=== PATIENT | female | born 1990 | race Caucasian/White ===

== ENCOUNTER 2018-07-12 21:37 | Emergency (ER) | payer MEDICAID ==
[~2018-07-12] VITALS: Ht 170.2 cm; Wt 101.2 kg
[~2018-07-12 21:37] MED LIST: ACET325T33 PO; ALBU8.5H5 INH; ALBU8.5H8 INH; GUAI118L94 PO; IBUP-1542 PO; PRED20TA PO; SODI44SP11 NS
[2018-07-12 21:40] VITALS: RESP 18; Ht 170.2 cm; Wt 101.2 kg
--- NOTE | 2018-07-12 22:56 | ERD ---
ER Documentation Chief Complaint Chief Complaint ap, nausea x's 1 week HPI 27-year-old female, with a history of cholelithiasis, presents to the emergency department, complaining of 1 week with diffuse abdominal pain located in the e pigastric area and radiated to the back, dull, intermittent, 6/10, associated with nausea and general malaise. The patient denies fever, no chills, no diarrhea or constipation, no jaundice. Medications taken at this time for pain. ROS All systems reviewed and are negative except as per history of present illness. Medications Home Meds Active Scripts Ibuprofen* (Motrin*) 400 Mg Tab, 400 MG PO Q6H PRN for PAIN AND OR ELEVATED TEMP, #30 TAB Prov:DAVID WANG MD 07/13/18 Ranitidine Hcl* (Zantac*) 150 Mg Tablet, 150 MG PO BID PRN for EPIGASTRIC PAIN, #30 TAB Prov:DAVID WANG MD 07/13/18 Guaifenesin-Codeine Phosphate* (Guaifenesin* with Codeine Liq) 120 Ml Liquid, 5 ML PO Q4H for COUGH, #120 ML Prov:FATUMA VERA NP 03/05/15 Sodium Chloride (Saline Nasal [place]) 45 Ml [place], 2 SPRAY NS Q2H, #1 BOT Prov:FATUMA VERA NP 03/05/15 Albuterol Sulfate* (Albuterol Sulfate* HFA) 8.5 Gm Hfa.aer.ad, 2 PUFF INH Q4 PRN for SHORTNESS OF BREATH, #1 EA Prov:FATUMA VERA NP 03/05/15 Albuterol Sulfate* (Proair HFA*) 8.5 Gm Hfa.aer.ad, 2 PUFF INH Q4 for 7 Days, INH Prov:PIA COLE MD 02/09/15 Prednisone* (Prednisone*) 20 Mg Tab, 60 MG PO DAILY for 5 Days 60MG PO Q DAY X 3 DAYS, THEN 40 MG PO Q DAY X 2 DAYS Prov:PIA COLE MD 02/09/15 Acetaminophen* (Tylenol*) 325 Mg Tablet, 2 TAB PO Q8 PRN for PAIN AND OR ELEVATED TEMP, #20 TAB Prov:ANGELY BLEVINS MD 01/03/15 Ibuprofen* (Motrin*) 600 Mg Tab, 600 MG PO Q6H PRN for PAIN AND OR ELEVATED TEMP, #30 Prov:ANGELY BLEVINS MD 01/03/15 Allergies Allergies: Coded Allergies: No Known Allergy (Verified , 01/03/15) PMhx/Soc Medical and Surgical Hx: pt denies Medical Hx, pt denies Surgical Hx History of Surgery: Yes (C/SECTION X1) Anesthesia Reaction: No Hx Neurological Disorder: No Hx Respiratory Disorders: Yes (asthma) Hx Cardiac Disorders: No Hx Psychiatric Problems: No Hx Miscellaneous Medical Probl: Yes (ASTHMA ) Hx Alcohol Use: No Hx Substance Use: No Hx Tobacco Use: No Smoking Status: Never smoker Physical Exam Vitals Vital Signs Date Temp Pulse Resp B/P (MAP) Pulse Ox O2 O2 Flow FiO2 Time Delivery Rate 07/13/18 84 138/77 01:01 (97) 07/12/18 98.3 92 18 163/84 100 21:40 (110) Physical Exam Patient alert, oriented, vital signs stable. HEAD: Normocephalic, atraumatic. EYES: PERRLA, EOMI, Sclera and conjunctiva appear normal. NOSE: Clear and patent nostrils. EARS: Canals clear, tympanic membranes WNL. MOUTH: normal lips and tongue, no oral lesions. THROAT: Normal oropharynx, no tonsillar exudates. NECK: Supple, No lymphadenopathy. Full ROM without pain or tenderness. HEART: RRR, no rubs, murmurs, clicks or gallops. LUNGS: Clear to auscultation. ABDOMEN: Soft, tender to palpation in the epigastric area, no Gomes sign, without masses or hepatosplenomegaly. EXTREMITIES: No edema bilaterally. BACK: Full ROM, no deformity, normal back exam NEURO: Cranial nerves grossly intact, no motor or sensory deficit SKIN: No rashes, no petechia. Result Diagram: 07/12/182 07/12/182326 Results 24 hrs Laboratory Tests Test 07/12/18 23:27 White Blood Count 8.1 10^3/ul Red Blood Count 4.43 10^6/ul Hemoglobin 11.1 g/dl Hematocrit 35.6 % Mean Corpuscular Volume 80.4 fl Mean Corpuscular Hemoglobin 25.1 pg Mean Corpuscular Hemoglobin Concent 31.2 g/dl Red Cell Distribution Width 13.4 % Platelet Count 340 10^3/UL Mean Platelet Volume 9.8 fl Immature Granulocytes % 0.400 % Neutrophils % 51.8 % Lymphocytes % 36.7 % Monocytes % 8.6 % Eosinophils % 2.1 % Basophils % 0.4 % Nucleated Red Blood Cells % 0.0 /100WBC Immature Granulocytes # 0.030 10^3/ul Neutrophils # 4.2 10^3/ul Lymphocytes # 3.0 10^3/ul Monocytes # 0.7 10^3/ul Eosinophils # 0.2 10^3/ul Basophils # 0.0 10^3/ul Nucleated Red Blood Cells # 0.0 10^3/ul Urine Color YELLOW Urine Clarity SLIGHTLY CLOUDY Urine pH 7.0 Urine Specific [place] 1.025 Urine Ketones NEGATIVE mg/dL Urine Nitrite NEGATIVE mg/dL Urine Bilirubin NEGATIVE mg/dL Urine Urobilinogen NEGATIVE mg/dL Urine Leukocyte Esterase 1+ [place]/ul Urine Microscopic RBC 8 /HPF Urine Microscopic WBC 3 /HPF Urine Squamous Epithelial Cells FEW /HPF Urine Bacteria FEW /HPF Urine Mucus FEW /HPF Urine Hemoglobin 1+ mg/dL Urine Glucose NEGATIVE mg/dL Urine Total Protein NEGATIVE mg/dl Urine Test NEGATIVE Sodium Level 141 mmol/L Potassium Level 3.8 mmol/L Chloride Level 103 mmol/L Carbon Dioxide Level 29 mmol/L Anion Gap 9 Blood Urea Nitrogen 12 mg/dl Creatinine 0.78 mg/dl Est Glomerular Filtrat Rate mL/min > 60 mL/min Glucose Level 110 mg/dl Calcium Level 9.6 mg/dl Total Bilirubin 0.1 mg/dl Direct Bilirubin 0.00 mg/dl Indirect Bilirubin 0.1 mg/dl Aspartate Amino Transf (AST/SGOT) 31 IU/L Alanine Aminotransferase (ALT/SGPT) 29 IU/L Alkaline Phosphatase 77 IU/L Total Protein 8.0 g/dl Albumin 4.4 g/dl Globulin 3.60 g/dl Albumin/Globulin Ratio 1.22 Lipase 124 U/L Current Medications Medications Dose Sig/Anna Start Time Status Last (Trade) Ordered Route PRN Stop Time Admin Dose Reason Admin Famotidine 20 mg ONCE STAT 07/12/18 DC 07/12/18 (Pepcid) PO 23:16 23:26 07/12/18 23:21 650 mg ONCE ONCE 07/12/18 DC 07/12/18 Acetaminophen PO 23:30 23:26 (Tylenol 07/12/18 23:31 Tab) Patient: MARIA DEL CARMEN BOND : 1990 Age: 27 Sex: F [id number] DOS: 07/12/18 2316 Ordering MD: DAVID WANG MD Location: [facility] Room/Bed: PROCEDURE: Abdominal ultrasound, limited. CLINICAL INDICATION: Abdominal pain. TECHNIQUE: Multiple real-time images were acquired of the patient's right upper abdomen utilizing a high resolution transducer. COMPARISON: None FINDINGS: The liver demonstrates normal echogenicity and size measuring 14.4 cm. There is no focal mass or intrahepatic biliary ductal dilatation. The portal vein is patent. The gallbladder is not distended. Multiple echogenic gallstones are identified. There is no pericholecystic fluid or gallbladder wall thickening. The common bile duct measures 3.7 mm in maximal dimension. The pancreas is obscured by overlying bowel gas. No free fluid is identified. The right kidney is normal size and echogenicity measuring 12.2 cm. There is no focal renal mass or echogenic calculus identified. There is no obstructive uropathy. IMPRESSION: Cholelithiasis without ultrasound evidence of cholecystitis. Pancreas obscured by overlying bowel gas. Procedures/MDM Vital signs stable. Differential diagnosis include but not limited to: UTI, colitis, gastroenteritis, kidney stones, irritable bowel syndrome, inflammatory bowel syndrome, malabsorption syndrome, cholelithiasis, food intolerance, medication side effect, pancreatitis, diverticulitis, bowel obstruction. Physical examination and clinical presentation consistent most likely with biliary colic, no evidence of acute cholecystitis or choledocholithiasis. During the ED course the patient remained stable, no new complaints. Results and clinical impression discussed with the patient who agrees with management. The patient is stable to be treated outpatient and will be discharged home; some side effects of prescribed medications (headache, rash, nausea, vomiting, diarrhea, drowsiness, habituation, bleeding, hypertension, interactions with other medications) were reviewed. The patient was informed that the evaluation in the emergency department has been done to rule out an acute emergency, therefore, chronic conditions like malignancy or other diseases have not been evaluated; therefore, the patient was instructed to follow up with the primary care provider in the next 48h. If symptoms persist, worsen or new symptoms develop, then patient should return to the ED immediately. Instructions explained and given directly by me to the patient with acknowledgment and demonstrated understanding. Disclaimer: Inadvertent spelling and grammatical errors are likely due to EHR/dictation software use and do not reflect on the overall quality of patient care. Also, please note that the electronic time recorded on this note does not necessarily reflect the actual time of the patient encounter. Departure Diagnosis: Primary Impression: Biliary colic Condition: Stable Additional Instructions: Muchas evie por [facility] para ingram servicio. Esperamos que en ingram visita a la triston de emergencia ingram problema medico haya sido solucionado y que se sienta mucho mejor. Para estar seguros que ingram mejoria sigue en proceso, le pedimos el favor de hacer gala marie de seguimiento medico con ingram doctor primario en los proximos 2-4 cruz. Lleve con usted estos documentos y las medicinas recetadas. Si adrianna sintomas empeoran, NO SE ESPERE, por favor regrese a triston de emergencia INMEDIATAMENTE. En liz que usted no tenga un mdico de atencin primaria: Llame al mdico o clnica comunitaria de referencia que aparece abajo damian las horas de consultorio para hacer gala marie para que le vean. CLINICAS: [facility] [phone] [facility] [phone] [address] [facility] [phone] [address] [facility]. [facility] [phone] [facility] [phone] [address] [facility] [phone] DAVID TAM MD Jul 12, 2018 22:56
[2018-07-12] MEDS ORDERED: FAMOTIDINE 20 MG TAB PO STA (23:16)
[2018-07-12] MEDS ORDERED: ACETAMINOPHEN 325 MG TAB PO ONE (23:30)
[2018-07-13] MEDS ORDERED: IBUP-1561 PO (00:28)
[2018-07-13] MEDS ORDERED: RANI150T35 PO (00:28)
[2018-07-13 01:01] VITALS: BP 138/77; PULSE 84
== END 2018-07-13 01:01 | disposition home or self-care (01) ==
LOC: FTE 21:37
DX: K80.50 Calculus of bile duct without cholangitis or cholecystitis without obstruction (principal); J45.909 Unspecified asthma, uncomplicated
CPT/HCPCS: 36415; 76705; 80053; 81001; 83690; 84703; 85025; Z7502; Z7610

== ENCOUNTER 2018-10-24 07:42 | Emergency (ER) | payer MEDICAID ==
[~2018-10-24] VITALS: Ht 167.6 cm; Wt 102.8 kg
[~2018-10-24 07:42] MED LIST changes: +IBUP-1561 PO; +RANI150T35 PO
[2018-10-24 07:44] VITALS: Ht 167.6 cm; Wt 102.8 kg
[2018-10-24] MEDS ORDERED: SOD CHLORIDE 0.9% 1,000 ML IV STA (07:57)
[2018-10-24] MEDS ORDERED: ONDANSETRON 4 MG INJ IV STA (07:57)
[2018-10-24] MEDS ORDERED: KETOROLAC 30 MG INJ IV STA (07:57)
[2018-10-24] MEDS ORDERED: HYDR-4011 PO (09:20)
[2018-10-24] MEDS ORDERED: FAMO-96 PO (09:20)
--- NOTE | 2018-10-24 09:34 | ERD ---
ER Documentation Chief Complaint Chief Complaint ABD PAIN X 1 DAY WITH NAUSEA. TAKING NAPROXEN HPI 27-year-old female presenting with abdominal pain for 1 day. Patient has epigastric pain and feels nauseous but no vomiting. She has some mild shoulder pain has normal urination bowel movement. She does have a history of gallstones . This happened 2 or 3 times before and the pain currently is constant. Medical history is asthma. NKDA. Surgical history . Social history denies ROS All systems reviewed and are negative except as per history of present illness. Medications Home Meds Active Scripts Famotidine* (Pepcid*) 20 Mg Tablet, 20 MG PO BID for 4 Days, TAB Prov:YANELIS KENNEY PA-C 10/24/18 Hydrocodone/Acetaminophen ([place] 5-325 Tablet) 1 Each Tablet, 1 TAB PO Q6H PRN for PAIN, #7 TAB Prov:YANELIS KENNEY PA-C 10/24/18 Ibuprofen* (Motrin*) 400 Mg Tab, 400 MG PO Q6H PRN for PAIN AND OR ELEVATED TEM P, #30 TAB Prov:DAVID WANG MD 07/13/18 Ranitidine Hcl* (Zantac*) 150 Mg Tablet, 150 MG PO BID PRN for EPIGASTRIC PAIN, #30 TAB Prov:DAVID WANG MD 07/13/18 Guaifenesin-Codeine Phosphate* (Guaifenesin* with Codeine Liq) 120 Ml Liquid, 5 ML PO Q4H for COUGH, #120 ML Prov:FATUMA VERA NP 03/05/15 Sodium Chloride (Saline Nasal [place]) 45 Ml [place], 2 SPRAY NS Q2H, #1 BOT Prov:FATUMA VERA NP 03/05/15 Albuterol Sulfate* (Albuterol Sulfate* HFA) 8.5 Gm Hfa.aer.ad, 2 PUFF INH Q4 PRN for SHORTNESS OF BREATH, #1 EA Prov:FATUMA VERA NP 03/05/15 Albuterol Sulfate* (Proair HFA*) 8.5 Gm Hfa.aer.ad, 2 PUFF INH Q4 for 7 Days, INH Prov:PIA COLE MD 11/14/15 Prednisone* (Prednisone*) 20 Mg Tab, 60 MG PO DAILY for 5 Days 60MG PO Q DAY X 3 DAYS, THEN 40 MG PO Q DAY X 2 DAYS Prov:PIA COLE MD 02/09/15 Acetaminophen* (Tylenol*) 325 Mg Tablet, 2 TAB PO Q8 PRN for PAIN AND OR ELEVATED TEMP, #20 TAB Prov:ANGELY BLEVINS MD 01/03/15 Ibuprofen* (Motrin*) 600 Mg Tab, 600 MG PO Q6H PRN for PAIN AND OR ELEVATED TEMP, #30 Prov:ANGELY BLEVINS MD 01/03/15 Allergies Allergies: Coded Allergies: No Known Allergy (Verified , 01/03/15) PMhx/Soc History of Surgery: Yes (C/SECTION X1) Anesthesia Reaction: No Hx Neurological Disorder: No Hx Respiratory Disorders: Yes (asthma) Hx Cardiac Disorders: No Hx Psychiatric Problems: No Hx Miscellaneous Medical Probl: Yes (ASTHMA ) Hx Alcohol Use: No Hx Substance Use: No Hx Tobacco Use: No FmHx Family History: No diabetes, No coronary disease, No other Physical Exam Vitals Vital Signs Date Temp Pulse Resp B/P (MAP) Pulse Ox O2 O2 Flow FiO2 Time Delivery Rate 10/24/18 97.6 88 16 149/65 99 07:44 (93) Physical Exam GENERAL: The patient is well-appearing, well-nourished, in no acute distress HEENT: Atraumatic. Conjunctivae are pink. Pupils equal, round, and reactive to light. There is no scleral icterus. Tympanic membranes clear bilaterally. Oropharynx clear. CHEST: Clear to auscultation bilaterally. There are no rales, wheezes or rhonchi. HEART: Regular rate and rhythm. No murmurs, clicks, rubs or gallops. ABDOMEN: Tender to palpation the epigastric region with no distention or rebound tenderness. Result Diagram: 10/24/18 0810/24/18 08 Results 24 hrs Laboratory Tests Test 10/24/18 08:05 10/24/18 08:06 White Blood Count 6.5 10^3/ul Red Blood Count 4.15 10^6/ul Hemoglobin 10.6 g/dl Hematocrit 33.1 % Mean Corpuscular Volume 79.8 fl Mean Corpuscular Hemoglobin 25.5 pg Mean Corpuscular Hemoglobin Concent 32.0 g/dl Red Cell Distribution Width 13.1 % Platelet Count 284 10^3/UL Mean Platelet Volume 10.5 fl Immature Granulocytes % 0.200 % Neutrophils % 47.9 % Lymphocytes % 39.8 % Monocytes % 9.2 % Eosinophils % 2.4 % Basophils % 0.5 % Nucleated Red Blood Cells % 0.0 /100WBC Immature Granulocytes # 0.010 10^3/ul Neutrophils # 3.1 10^3/ul Lymphocytes # 2.6 10^3/ul Monocytes # 0.6 10^3/ul Eosinophils # 0.2 10^3/ul Basophils # 0.0 10^3/ul Nucleated Red Blood Cells # 0.0 10^3/ul Urine Color YELLOW Urine Clarity CLEAR Urine pH 6.0 Urine Specific [place] 1.016 Urine Ketones NEGATIVE mg/dL Urine Nitrite NEGATIVE mg/dL Urine Bilirubin NEGATIVE mg/dL Urine Urobilinogen NEGATIVE mg/dL Urine Leukocyte Esterase TRACE [place]/ul Urine Microscopic RBC 3 /HPF Urine Microscopic WBC 3 /HPF Urine Squamous Epithelial Cells FEW /HPF Urine Mucus FEW /HPF Urine Hemoglobin 3+ mg/dL Urine Glucose NEGATIVE mg/dL Urine Total Protein NEGATIVE mg/dl Sodium Level 142 mmol/L Potassium Level 3.7 mmol/L Chloride Level 108 mmol/L Carbon Dioxide Level 24 mmol/L Anion Gap 10 Blood Urea Nitrogen 12 mg/dl Creatinine 0.77 mg/dl Est Glomerular Filtrat Rate mL/min > 60 mL/min Glucose Level 98 mg/dl Calcium Level 9.1 mg/dl Total Bilirubin 0.2 mg/dl Direct Bilirubin 0.00 mg/dl Indirect Bilirubin 0.2 mg/dl Aspartate Amino Transf (AST/SGOT) 31 IU/L Alanine Aminotransferase (ALT/SGPT) 34 IU/L Alkaline Phosphatase 78 IU/L Total Protein 7.3 g/dl Albumin 4.0 g/dl Globulin 3.30 g/dl Albumin/Globulin Ratio 1.21 Lipase 112 U/L POC Beta HCG, Qualitative NEGATIVE Current Medications Medications Dose Sig/Anna Start Time Status Last (Trade) Ordered Route PRN Stop Time Admin Dose Reason Admin Sodium 1,000 ml @ Q1H STAT 10/24/18 DC 10/24/18 Chloride 1,000 mls/hr IV 07:57 08:26 10/24/18 08:56 Ondansetron 4 mg ONCE STAT 10/24/18 DC 10/24/18 HCl (Zofran IV 07:57 08:26 Inj) 10/24/18 07:59 Ketorolac 30 mg ONCE STAT 10/24/18 DC 10/24/18 Tromethamine IV 07:57 08:25 (Toradol) 10/24/18 07:59 Procedures/MDM DIAGNOSTIC IMAGING REPORT Patient: MARIA DEL CARMEN BOND : 1990 Age: 27 Sex: F [id number] [id number] DOS: 10/24/18 0757 Ordering MD: MONAE KENNEY PA-C Location: [facility] Room/Bed: PROCEDURE: ULTRASOUND LIMITED ABDOMEN CLINICAL INDICATION: 27-year-old female with abdominal pain. TECHNIQUE: Multiple sonographic of the right upper quadrant of the abdomen were obtained. The images were reviewed on a PACS workstation. COMPARISON: Right upper quadrant ultrasound July 12, 2018. FINDINGS: The pancreas is not well visualized secondary to overlying bowel gas. The liver displays normal echogenicity. The liver measures 14.2 cm in length. No evidence of intrahepatic biliary ductal dilatation is seen. The portal and hepatic veins are unremarkable. The gallbladder contains multiple shadowing stones with the largest measuring approximately 2.7 cm. The gallbladder wall thickness is within normal limits measuring 2.3 mm. No pericholecystic fluid is seen. The common bile duct measures 5.0 mm and is not dilated. The right kidney displays normal echogenicity. The right kidney measures 13.0 x 5.4 cm. No caliectasis or hydronephrosis is seen. No free fluid is seen. IMPRESSION: Cholelithiasis. MDM: 27-year-old female presenting with epigastric pain. Patient has a history of gallstones. I have low suspicion for choledocholithiasis, cholecystitis, cholangitis or pancreatitis. Patient has findings consistent with cholelithiasis likely causing her pain. I have low suspicion for cardiac or pulmonary emergency. I have low suspicion for acute abdominal emergency. Patient is discharged with strict ER precautions and told to follow-up with primary care within 1 to 2 days for close evaluation. All questions answered at discharge Departure Diagnosis: Primary Impression: Gallstones Condition: Stable Patient Instructions: Gallstones Referrals: COMMUNITY CLINICS YOU HAVE RECEIVED A MEDICAL SCREENING EXAM AND THE RESULTS INDICATE THAT YOU DO NOT HAVE A CONDITION THAT REQUIRES URGENT TREATMENT IN THE EMERGENCY DEPARTMENT. FURTHER EVALUATION AND TREATMENT OF YOUR CONDITION CAN WAIT UNTIL YOU ARE SEEN IN YOUR DOCTORS OFFICE WITHIN THE NEXT 1-2 DAYS. IT IS YOUR RESPONSIBILITY TO MAKE AN APPOINTMENT FOR FOLOW-UP CARE. IF YOU HAVE A PRIMARY DOCTOR --you should call your primary doctor and schedule an appointment IF YOU DO NOT HAVE A PRIMARY DOCTOR YOU CAN CALL OUR PHYSICIAN REFERRAL HOTLINE AT IF YOU CAN NOT AFFORD TO SEE A PHYSICIAN YOU CAN CHOSE FROM THE FOLLOWING [facility] CLINICS [facility] [address] [facility] [address] [facility] [facility] [address] [facility] [address] [facility] [place] [address] [facility] [facility] [address] Additional Instructions: FOLLOW UP WITH YOUR PRIMARY CARE PHYSICIAN TOMORROW.Return to this facility if you are not improving as expected. YANELIS KENNEY PA-C Oct 24, 2018 09:34
[2018-10-24 09:44] VITALS: BP 126/88; PULSE 68; RESP 18
== END 2018-10-24 09:51 | disposition home or self-care (01) ==
LOC: FTE 07:42
DX: K80.20 Calculus of gallbladder without cholecystitis without obstruction (principal); J45.909 Unspecified asthma, uncomplicated
CPT/HCPCS: 76705; 80053; 81001; 81025; 83690; 85025; J1885; J2405; J7030; 36415; 96374; 96375